=== PATIENT | female | born 1965 | race Caucasian/White ===

== ENCOUNTER 2017-04-01 11:38 | Outpatient (CLI) | payer OTHER ==
[~2017-04-01] VITALS: Ht 162.6 cm; Wt 89.5 kg
[~2017-04-01 11:38] MED LIST: ATIVAN 1MG T1 MG/TAB PO; COLESTID 1GM1 G PO; LAMICTAL150 MG PO; LEXAPRO 10MG10 MG PO; MAXALT10 MG PO; NEURONTIN600 MG/TAB PO; PHENERGAN 25 TA25 MG PO; VITAMIN B11000 MCG/M IM; WELLBUTRIN XL300 M1 PO
[2017-04-01 12:15] VITALS: BP 109/83; PULSE 86
[2017-04-01 13:35] VITALS: BP 118/84; PULSE 72; PULSE 73
[2017-04-01 13:45] VITALS: BP 123/85; PULSE 69
[2017-04-01 14:00] VITALS: BP 127/88; PULSE 71
[2017-04-01 14:30] VITALS: BP 122/91; PULSE 73
[2017-04-01 14:31] LABS: GLUCOSE,CSF 56 mg/dL (40-70); TOTAL PROTEIN,CSF 18 mg/dL (15-45)
[2017-04-01 14:40] LABS: CSF APPEARANCE CLEAR; CSF COLOR COLORLESS; CSF MONONUCLEAR 0 % (70-100); CSF POLYMORPHONUCLEAR 0 % (0-6); CSF RBC 2 /mm3 (0-0)
== END 2017-04-01 14:45 | disposition home or self-care (01) ==
LOC: COL.RAD 11:38
PROVIDERS: Psychiatry & Neurology Neurology
DX: R25.1 Tremor, unspecified (principal); R26.89 Other abnormalities of gait and mobility; R29.6 Repeated falls